=== PATIENT | female | born 1935 | race Caucasian/White ===

== ENCOUNTER 2016-07-11 19:25 | Inpatient (IN) ==
[2016-07-11 19:47] LABS: BLOOD TYPE ARTERIAL; DRAW SITE R FEMORAL; METHB 0.4 % (0.0-1.5); O2(CT) 16.6 mL/dL (15.0-23.0); PO2(98.6) 85 mmHg (60-100); SAMPLE BLOOD; SAO2 96.1 % (95.0-100.0); THB 12.4 g/dL (11.5-17.4)
[2016-07-11 19:49] LABS: MANUAL DIFF NEEDED? NO
[2016-07-11 19:50] LABS: ALLEN TEST NO; MODALITY AMBU BAG; PCO2(98.6) 67 mmHg (35-45)
[2016-07-11] MEDS ORDERED: NS 1,000 ML IV ONE ×3 (19:50→20:25)
[2016-07-11 19:55] LABS: POTASSIUM 3.8 mmol/L (3.5-5.1); SODIUM 133 mmol/L (136-145)
[2016-07-11 19:56] LABS: AGAP 14; BUN 15 mg/dL (8-22); CALCIUM 8.3 mg/dL (8.8-10.2); CHLORIDE 101 mmol/L (98-107); COSMO 271; TCO2 18 mmol/L (25-35)
[2016-07-11 19:57] LABS: ALBUMIN 2.8 g/dL (3.5-5.0); ALKALINE PHOSPHATASE 74 U/L (32-104); GOT 28 U/L (10-30); GPT 19 U/L (10-36); MAGNESIUM 2.1 mg/dL (1.5-2.7); TOTAL PROTEIN 5.5 g/dL (6.3-8.3)
[2016-07-11 19:58] LABS: CK PROFILE 62 U/L (24-173)
[2016-07-11 20:16] LABS: BASO% 0.3 % (0.0-0.8); EOS# 0.03 X1000 (0.0-0.7); EOS% 0.3 % (0.0-10.0); HEMATOCRIT 37.1 % (37.0-47.0); HEMOGLOBIN 12.1 g/dL (12.0-16.0); IMM GRAN# 0.22 X1000 (0.0-0.04); IMM GRAN% 2.1 % (0.0-0.5); LYMPH# 4.42 X1000 (1.2-3.4); LYMPH% 41.3 % (20.5-51.1); MCH 32.4 PG (27-31); MCHC 32.6 g/dL (33-37); MCV 99.2 FL (81-99); MONO# 0.38 X1000 (0.11-0.59); MONO% 3.6 % (1.7-9.3); MPV 8.9 FL (7.4-10.4); NEUT% 52.4 % (42.2-75.2); PLT 378 X1000 (130-400); RBC 3.74 XMIL (4.2-5.4)
[2016-07-11] MEDS ORDERED: ZOFRAN IV PRN (20:32)
[2016-07-11 20:55] LABS: BILIRUBIN URINE NEGATIVE (NEGATIVE); BLOOD URINE NEGATIVE (NEGATIVE); CLARITY CLEAR (CLEAR); COLOR YELLOW; GLUCOSE URINE NEGATIVE (NEGATIVE); LEUKOCYTES URINE TRACE (NEGATIVE); NITRITE URINE NEGATIVE (NEGATIVE); PROTEIN URINE NEGATIVE (NEGATIVE); SP GRAVITY URINE 1.015; URINE WBC <10 /HPF (<10); UROBILINOGEN URINE NORMAL
[2016-07-11 20:56] LABS: URINE CAST NONE SEEN /LPF; URINE CRYSTAL NONE SEEN /HPF; URINE CULTURE PL NEEDED? YES; URINE EPITHELIAL CELLS <10 /HPF (<10); URINE RBC <10 /HPF (<10); URINE SOURCE CATH
--- NOTE | 2016-07-11 21:11 | PROVIDER DOCUMENTATION ---
This chart was entered by Rowan Jackson Scribe, acting as scribe for Neo Frederick MD. HPI-Neurological Disorder - General Chief Complaint: Unresponsive Stated Complaint: NONRESPONSIVE Time Seen by Provider: 07/11/16 19:25 Source: EMS Unable to obtain history due to:: urgency (unresponsive) Allergies/Adverse Reactions: Patient Allergies Allergy/AdvReac Type Severity Reaction Status Date / Time latex Allergy RASH Verified 07/11/16 20:49 - History of Present Illness-Neuro Nature of Presenting Problem: Per EMS, daughter was giving pt a bath and pt went unresponsive and turned rose. Daughter started CPR with possible broken ribs. On EMS arrival, Fire Department was on scene and had pt on a NRB. PT was breathing 4-5 times a minute. EMS assisted pt with breathing en-route to ED. Severity: reports: severe Onset/Duration: reports: 1-3 hours ago Timing: reports: still present Character of Altered Mental Status: reports: unresponsive Cognitive Baseline: other (unresponsive) Similar Symptoms Previously?: No Recently seen or treated by another doctor?: No Review of Systems - Adult - REVIEW OF SYSTEMS - ADULT ROS:: unobtainable per condition Constitutional: reports: no symptoms reported Eyes: reports: no symptoms reported Ears, Nose, Mouth & Throat: reports: no symptoms reported Cardiovascular: reports: no symptoms reported Respiratory: reports: no symptoms reported Gastrointestinal: reports: no symptoms reported Genitourinary: reports: no symptoms reported Musculoskeletal: reports: no symptoms reported Integumentary: reports: no symptoms reported Neurological: reports: no symptoms reported Psychiatric: reports: no symptoms reported Endocrine: reports: no symptoms reported Hematologic/Lymphatic: reports: no symptoms reported Allergic/Immunologic: reports: no symptoms reported All Other Systems: Reviewed and Negative Past History - Adult - PAST MEDICAL HISTORY-ADULT Review of Records: reports: Nursing Assessment Review, Medications Reviewed Respiratory: reports: COPD Neurological: reports: dementia - IMMUNIZATION STATUS Childhood Immunizations: See Nurse Assessment Flu Vaccine: See Nurse Assessment Physical Exam- Neurological - Physical Exam-Neuro General Appearance: cachetic, other (unresponsive) Head Injury: no evidence of injury Respiratory: respiratory distress, rhonchi (diffuse) Cardiovascular: regular rate, rhythm Abdominal Exam: soft Psych/Mental Status: other (unresponsive) Progress - PLAN OF CARE/RESULTS Progress/Plan/Lab Results: Vital Signs - 8 hr 07/11/16 19:26 07/11/16 19:48 07/11/16 20:06 Temperature 93.9 F L Pulse Rate 92 H 80 Respiratory Rate 17 15 Blood Pressure 109/87 126/86 O2 Sat by Pulse Oximetry 96 96 100 07/11/16 20:18 07/11/16 20:27 Temperature 92.7 F L Pulse Rate 76 Respiratory Rate 16 Blood Pressure 114/76 O2 Sat by Pulse Oximetry 100 Laboratory Results - last 24 hr 07/11/16 07/11/16 07/11/16 19:10 19:15 19:15 WBC RBC Hgb Hct MCV MCH MCHC RDW Std Deviation Plt Count MPV Immature Gran % (Auto) Neut % (Auto) Lymph % (Auto) Bradley % (Auto) Eos % (Auto) Baso % (Auto) Immature Gran # (Auto) Neut # (Auto) Lymph # (Auto) Bradley # (Auto) Eos # (Auto) Baso # (Auto) Specimen Type ARTERIAL Sample Site R FEMORAL pH 7.20 L pCO2 67 H* pO2 85 HCO3 22.5 Base Excess -3.0 Oxyhemoglobin 94.5 L ABG O2 Sat (Calculated) 16.6 ABG O2 Saturation 96.1 ABG Carboxyhemoglobin 1.20 ABG Methemoglobin 0.4 Frandy Test NO A-a O2 Difference 544.0 Total Hemoglobin 12.4 Lactate 4.00 H Blood Gas Modality AMBU BAG FiO2 % 100.0 Sodium 133 L Potassium 3.8 Chloride 101 Carbon Dioxide 18 L Anion Gap 14 BUN 15 Creatinine 0.5 BUN/Creatinine Ratio 30 Glucose 171 H Calculated Osmolality 271 Calcium 8.3 L Magnesium 2.1 Total Bilirubin 0.30 AST 28 ALT 19 Alkaline Phosphatase 74 Creatine Kinase 62 Troponin T 0.011 Qhz-[id number]-Mthbweylmob Pept Total Protein 5.5 L Albumin 2.8 L Globulin 3.0 Albumin/Globulin Ratio 1.0 Urine Source Urine Color Urine Clarity Urine pH Ur Specific [place] Urine Protein Urine Ketones Urine Blood Urine Nitrite Urine Bilirubin Urine Urobilinogen Urine Microscopic RBC Urine WBC Urine Microscopic WBC Ur Epithelial Cells Urine Crystals Urine Bacteria Urine Casts Urine Yeast Urine Glucose 07/11/16 07/11/16 07/11/16 19:15 19:15 19:20 WBC 10.69 RBC 3.74 L Hgb 12.1 Hct 37.1 MCV 99.2 H MCH 32.4 H MCHC 32.6 L RDW Std Deviation 13.5 Plt Count 378 MPV 8.9 Immature Gran % (Auto) 2.1 H Neut % (Auto) 52.4 Lymph % (Auto) 41.3 Bradley % (Auto) 3.6 Eos % (Auto) 0.3 Baso % (Auto) 0.3 Immature Gran # (Auto) 0.22 H Neut # (Auto) 5.61 Lymph # (Auto) 4.42 H Bradley # (Auto) 0.38 Eos # (Auto) 0.03 Baso # (Auto) 0.03 Specimen Type Sample Site pH pCO2 pO2 HCO3 Base Excess Oxyhemoglobin ABG O2 Sat (Calculated) ABG O2 Saturation ABG Carboxyhemoglobin ABG Methemoglobin Frandy Test A-a O2 Difference Total Hemoglobin Lactate Blood Gas Modality FiO2 % Sodium Potassium Chloride Carbon Dioxide Anion Gap BUN Creatinine BUN/Creatinine Ratio Glucose Calculated Osmolality Calcium Magnesium Total Bilirubin AST ALT Alkaline Phosphatase Creatine Kinase Troponin T Dyd-X-Hwjggrxpvus Pept 362 Total Protein Albumin Globulin Albumin/Globulin Ratio Urine Source CATH Urine Color YELLOW Urine Clarity CLEAR Urine pH 7.0 Ur Specific [place] 1.015 Urine Protein NEGATIVE Urine Ketones NEGATIVE Urine Blood NEGATIVE Urine Nitrite NEGATIVE Urine Bilirubin NEGATIVE Urine Urobilinogen NORMAL Urine Microscopic RBC <10 Urine WBC TRACE A Urine Microscopic WBC <10 Ur Epithelial Cells <10 Urine Crystals NONE SEEN Urine Bacteria NEGATIVE Urine Casts NONE SEEN Urine Yeast NONE SEEN Urine Glucose NEGATIVE Orders Category Date Time Status Admit - [facility] Routine AdmDCTranf 07/11/16 20:25 Ordered Activity - Strict Bedrest ORDERED Care 07/11/16 20:25 Active Activity - Up with Assistance ORDERED Care 07/11/16 20:30 Active Cardiac Monitoring DIRECTED Care 07/11/16 19:37 Active FSBS [Finger Stick Blood Sugar (ED)] DIRECTED Care 07/11/16 19:37 Active FSBS/Accucheck Result AC + HS Care 07/11/16 20:30 Active Luis Cath Insertion ORDERED Care 07/11/16 19:37 Active IV Insertion ORDERED Care 07/11/16 19:37 Completed Intake and Output-Strict ORDERED Care 07/11/16 20:30 Active Neurological Check Q1h Care 07/11/16 20:25 Active Nursing- Assist w/ IS as order ORDERED Care 07/11/16 20:30 Active Saline Loc DIRECTED Care 07/11/16 20:30 Active Turn, Cough and Deep Breathe Q4HR.AWAKE Care 07/11/16 20:30 Active Vital Signs Order Q 4-HR ASSESS Care 07/11/16 20:25 Active NPO Diet 07/11/16 20:28 Active CHEST-1 VIEW [RAD] Stat Exams 07/11/16 19:37 Taken ABG [RESP] Routine Lab 07/11/16 19:10 Completed BLOOD CULTURE [BLDCUL] Routine Lab 07/12/16 06:00 Ordered CBC WITH DIFF [HEME] Stat Lab 07/11/16 19:15 Completed CBC WITH NO DIFF [HEME] Routine Lab 07/12/16 06:00 Ordered CK PROFILE [SP CHEM] Stat Lab 07/11/16 19:15 Completed COMPREHENSIVE METABOLIC PANEL [CHEM] Routine Lab 07/12/16 06:00 Ordered COMPREHENSIVE METABOLIC PANEL [CHEM] Stat Lab 07/11/16 19:15 Completed MAGNESIUM [CHEM] Stat Lab 07/11/16 19:15 Completed PRO B-NATRIURETIC PEPTIDE Stat Lab 07/11/16 19:15 Completed SPUTUM CULTURE WITH GRAM STAIN [RM] Routine Lab 07/11/16 20:31 Uncollected TROPONIN T Stat Lab 07/11/16 19:[address] W/POSS RFLX CULT [URINALYSIS] Stat Lab 07/11/16 19:20 Completed 0.9% Sodium Chloride Inj [Ns] 1,000 ml Med 07/11/16 20:25 Active IV 100 mls/hr 0.9% Sodium Chloride Inj [Ns] 1,000 ml Med 07/11/16 19:50 Discontinued IV 999 mls/hr 0.9% Sodium Chloride Inj [Ns] 1,000 ml Med 07/11/16 20:24 Active IV 999 mls/hr Albuterol 2.5MG/Ipratrop 0.5MG [Duoneb (A & A)] Med 07/11/16 20:32 Active 3 ml INH Q2-4H PRN PRN CefTRIAXONE 2 GM/NS [Rocephin 2 gm/Ns] Med 07/11/16 20:30 Active 2 gm in 50 ml IV Q24H Doxycycline 100 mg Med 07/11/16 20:30 Active 0.9% Sodium Chloride Inj [Ns] 250 ml IV Q12H Enoxaparin [Lovenox] Med 07/11/16 20:30 Active 30 mg SUBQ Q24H Methylprednisolone Sod Succ [Solu-Medrol] Med 07/11/16 20:30 Active 40 mg IV Q8H Ondansetron [Zofran] Med 07/11/16 20:32 Active 4 mg IV Q4H PRN PRN Pantoprazole [Protonix] Med 07/11/16 20:45 Active 40 mg IV Q12H Sodium Chloride 0.9% Med 07/11/16 20:45 Active 10 ml INJ DIRECTED Aerosol Treatments Routine Ot 07/11/16 20:30 Active Aerosol Treatments Routine Ot 07/11/16 20:33 Active Aerosol Treatments Stat Ot 07/11/16 20:33 Active BIPAP Stat Ot 07/11/16 19:37 Active Incentive Spirometer Q4HR.AWAKE Ot 07/11/16 21:00 Ordered Incentive Spirometer Q4HR.AWAKE Ot 07/12/16 01:00 Ordered Incentive Spirometer Q4HR.AWAKE Ot 07/12/16 05:00 Ordered Incentive Spirometer Q4HR.AWAKE Ot 07/12/16 09:00 Ordered Incentive Spirometer Q4HR.AWAKE Ot 07/12/16 13:00 Ordered Incentive Spirometer Q4HR.AWAKE Ot 07/12/16 17:00 Ordered Oxygen Device Routine Ot 07/11/16 20:30 Active Peak Flow BID Ot 07/11/16 21:00 Ordered Peak Flow BID Ot 07/12/16 09:00 Ordered Pulse Oximetry Stat Ot 07/11/16 19:37 Active Telemetry [OM.EQ] Routine Oth 07/11/16 20:25 Active EKG [EKG] Stat Ther 07/11/16 19:37 Ordered Transfer/Admit Order [TRANSFER] Routine Transfer 07/11/16 20:33 Ordered Result Diagrams: 07/11/16 19:15 07/11/16 19:15 - EKG 1 Time of EKG reading by physician:: 19:37 EKG Read and Signed by:: Neo Frederick EKG Interpretation (*Must complete 3 of following elements*): Abnormal Rate: 87 Rhythm: sinus rhythm with premature supraventricular complexes and w/ occ PVCs [place]: left 2 Time of EKG reading by physician:: 19:41 EKG Read and Signed by:: Neo Frederick EKG Interpretation (*Must complete 3 of following elements*): Abnormal Rate: 82 Rhythm: sinus rhythm with occasional PVCs [place]: left ST Wave: non-specific ST changes (T-wave abnormality) - XRAY 1 XRAY Study: Chest XRAY Interpretation: hyperinflation, old humeral fxs: Dr. Frederick(ER MD) - CONSULTS/PCP/HOSPITALIST Notification #1 *Consult/PCP/Hospitalist*: Dr. Catalan(hospitalist) Time Discussed: 20:00 Consult Disposition: Will see in ED, Admit Departure - Departure Time of Disposition Decision: 21:10 DIAGNOSIS: Unresponsive COPD (chronic obstructive pulmonary disease) Qualifiers: COPD type: emphysema Emphysema type: unspecified Qualified Code(s): J43.9 - Emphysema, unspecified Disposition: ADMITTED INPATIENT 09 Certified Medical Emergency: Emergent Condition: Critical - Critical Care Note This patient required my direct & personal management of CC.: Yes Total Time (mins): 45 Critical Care Statement: This patient required my direct personal management to treat or rule out processes, the absence of which, could potentiallly result in sudden, clinically significant life or limb threatening deterioration. This chart was documented by the indicated scribe, (Rowan Jackson Scribe) and accurately reflects the services I performed and decisions made by me, Neo Frederick MD, as attested by the provider's signature.
[2016-07-11] MEDS ORDERED: LEVOPHED 8 MG in D5 1/2 NS 250 ML IV SCH (21:30)
[2016-07-11] MEDS ORDERED: LEVOPHED ONE (21:34)
[2016-07-11] MEDS ORDERED: D5 1/2 NS 250 ML IV SCH (22:00)
--- NOTE | 2016-07-11 22:04 | EKG Report ---
Test Performed on : 07/11/2016 7:37:21 PM Test Reason : respiratory failure Blood Pressure : / mmHG Vent. Rate : 087 BPM Atrial Rate : 087 BPM P-R Int : 160 ms QRS Dur : 078 ms QT Int : 386 ms P-R-T Axes : 082 -86 -18 degrees QTc Int : 464 ms Sinus rhythm. with premature supraventricular complexes. and with occasional premature ventricular c omplexes. Left axis deviation Low voltage QRS Cannot rule out Anteroseptal infarct , age undetermined Abnormal ECG No previous ECGs available Unconfirmed Result
[2016-07-11] MEDS: PROTONIX IV SCH (22:14)
[2016-07-11] MEDS: LOVENOX SUBQ SCH (22:14)
[2016-07-11] MEDS: SOLU-MEDROL IV SCH (22:14)
[2016-07-11] MEDS ORDERED: NS 1,000 ML ONE (22:18)
[2016-07-11] MEDS ORDERED: ROCEPHIN 1 GM/NS 1 GM/50 ML IVPB IV ONE ×2 (23:00→23:30)
[2016-07-11] MEDS ORDERED: ROCEPHIN ONE (23:24)
[2016-07-11] MEDS ORDERED: [UNRECOGNIZED DRUG - OTHER] ONE (23:24)
[2016-07-12] MEDS ORDERED: DOPAMINE 800 MG/D5W (PARKWAY ONLY!) 800 MG/250 ML IV.SOLN IV SCH (00:30)
[2016-07-12] MEDS: DOXYCYCLINE 100 MG in NS 250 ML IV SCH ×3 (01:00→22:27)
[2016-07-12] MEDS: LEVOPHED 8 MG in D5 1/2 NS 250 ML IV SCH ×2 (02:30→07:59)
[2016-07-12] MEDS: SOLU-MEDROL IV SCH ×3 (04:13→20:19)
[2016-07-12] MEDS: DUONEB (A & A) INH PRN ×2 (04:17→08:06)
[2016-07-12 06:30] LABS: HEMATOCRIT 39.8 % (37.0-47.0); HEMOGLOBIN 13.1 g/dL (12.0-16.0); MCH 32.3 PG (27-31); MCHC 32.9 g/dL (33-37); MPV 8.7 FL (7.4-10.4); RBC 4.06 XMIL (4.2-5.4)
[2016-07-12 06:43] LABS: AGAP 15; ALBUMIN 2.6 g/dL (3.5-5.0); ALKALINE PHOSPHATASE 63 U/L (32-104); BUN 20 mg/dL (8-22); CHLORIDE 106 mmol/L (98-107); COSMO 287; GOT 29 U/L (10-30); GPT 22 U/L (10-36); POTASSIUM 3.6 mmol/L (3.5-5.1); SODIUM 141 mmol/L (136-145); TCO2 20 mmol/L (25-35); TOTAL PROTEIN 5.3 g/dL (6.3-8.3)
--- NOTE | 2016-07-12 07:48 | Diag Imaging Result Document ---
PROCEDURE NAME: CHEST-1 VIEW - 07/11/2016 PORTABLE AP CHEST: COMPARISON: No comparison films. FINDINGS: The lungs are hyperexpanded. The heart is not enlarged. The pulmonary vessels are small. No pneumonia. No pleural effusions identified. Longstanding arthritic changes to the shoulders. IMPRESSION: Emphysema.
[2016-07-12] MEDS ORDERED: NS 1,000 ML ONE ×2 (09:22→12:58)
[2016-07-12] MEDS: PROTONIX IV SCH ×2 (09:45→20:19)
[2016-07-12] MEDS: SODIUM CHLORIDE 0.9% INJ SCH (10:28)
--- NOTE | 2016-07-12 11:38 | HISTORY AND PHYSICAL ---
PRIMARY CARE PHYSICIAN: Dr. Thompson. CHIEF COMPLAINT: Unresponsive. HISTORY OF PRESENTING ILLNESS: This is an 80-year-old female, who arrived to [facility] ER via EMS after they were called when the daughter was giving the patient a bath and the patient went unresponsive, turning rose. The daughter states that she began CPR. On arrival, CPR was in place, a non-rebreather mask was placed and patient was breathing 4-5 times a minute. Upon arrival to the ER per ER records, the patient per EMS had an O2 saturation in the 80s and was able to bring it up to the high 90s. Her rectal temp on arrival was noted to be 93.9. She was placed on a bear warmer. A bolus of normal saline was given. Approximately 10 minutes after arrival, the patient began responding to some verbal stimuli. BiPAP was placed. Code status was discussed with the family in the ER. They wanted some time to discuss their options, and the daughter wanted to wait on her son before code status decision was made. The patient was admitted to the intensive care unit for further evaluation and treatment. PAST MEDICAL HISTORY: COPD and dementia. PAST SURGICAL HISTORY: Cholecystectomy. FAMILY HISTORY: Noncontributory. SOCIAL HISTORY: She is currently living with her daughter. Denies any tobacco, alcohol, or illicit drug use. Please note all information has been obtained from the medical record. No family at bedside at this time. ALLERGIES: Latex. HOME MEDICATIONS: Will all be held at this time, but she takes aspirin 81 mg p.o. daily, BuSpar 15 mg p.o. b.i.d., Aricept 10 mg p.o. b.i.d., Lexapro 20 mg p.o. daily, and Prinivil 10 mg p.o. daily. LABORATORY DATA: Showed a white blood cell count of 10.69, hemoglobin of 12.1, hematocrit 37.1, platelets 378. ABG with a pH of 7.20 pCO2 67, PO2 85, bicarbonate 22.5. Sodium of 133, potassium 3.8, chloride 101, CO2 18, BUN of 15, creatinine 0.5, glucose 171. Urinalysis was negative. DIAGNOSTIC DATA: The chest x-ray showed emphysema. EKG showed sinus rhythm with premature supraventricular complexes and with occasional PVCs at 87. REVIEW OF SYSTEMS: Unable to obtain. PHYSICAL EXAMINATION: VITAL SIGNS: On arrival showed a temperature of 93.9 degrees, pulse 92, respirations 17, blood pressure 109/87, and again this was on 96% O2 saturation with Ambu bag. She was then placed on BiPAP approximately 15 minutes later and was saturating 96-100% and a bear warmer was placed this a.m. HEENT: Normocephalic. Atraumatic. Pupils appear equal, round, and reactive to light. Extraocular movements unable to assess at this time. NECK: Supple. LUNGS: With rhonchi and in respiratory distress. HEART: Regular rate and rhythm. No murmurs, rubs, gallops. ABDOMEN: Soft, nontender, nondistended. Bowel sounds are present x4 quadrants. EXTREMITIES: No clubbing, cyanosis, or edema. NEUROLOGICAL: Unable to obtain as patient is unresponsive at this time. ASSESSMENT: 1. Unresponsive. 2. Acute respiratory failure. 3. Hypothermia. 4. Hypotension. PLAN: She was admitted to the medical unit at [place]. Placed on BiPAP, telemetry. She is n.p.o. at this time. We are obtaining a urine culture, sputum culture, blood cultures x2. Will place on doxycycline 100 mg IV q. 24 hours, Lovenox 30 mg subcutaneous q. 24 hours, Solu-Medrol 40 mg IV q. 8 hours, Protonix 40 mg IV q. 12 hours, Rocephin 2 g IV q. 24 hours and recheck labs in the a.m. We will continue to discuss code status with the patient's family to obtain a definitive code status for this patient. Dictated by AUSTIN Reid for Sam Catalan MD cc: AUSTIN Reid MD Charles D Coffey, MD
[2016-07-12] MEDS: NS 1,000 ML IV SCH (13:44)
[2016-07-12] MEDS: LEVOPHED 16 MG in D5 1/2 NS 500 ML IV SCH (13:45)
[2016-07-12] MEDS: LOVENOX SUBQ SCH (20:19)
[2016-07-12] MEDS: ROCEPHIN 2 GM/NS 2 GM/50 ML IVPB IV SCH (22:29)
[2016-07-13] MEDS: SOLU-MEDROL IV SCH (04:20)
[2016-07-13] MEDS: LEVOPHED 16 MG in D5 1/2 NS 500 ML IV SCH (04:20)
[2016-07-13] MEDS: DUONEB (A & A) INH PRN ×2 (07:50→11:00)
[2016-07-13] MEDS ORDERED: LEVOPHED 8 MG in D5 1/2 NS 250 ML IV SCH (08:15)
--- NOTE | 2016-07-13 09:15 | PROGRESS NOTE ---
DATE: 07/13/2016 SUBJECTIVE: This patient looks better today. She is more awake. She is more alert. She is following commands. We stopped the pressors on this patient and her blood pressure has been stable but the urine output has been low. Pending lab work results today. OBJECTIVE: Vital Signs: Temperature 98.4 degrees, pulse 86, respiratory rate 17, blood pressure 107/73. Oxygen saturation 100% on BiPAP 60% oxygen flow. HEENT: Head normocephalic. No trauma. PERRLA. Neck: Supple. No JVD. No masses. Central trachea. Chest: Coarse breath sounds bilaterally. Decreased breath sounds at the bases. Cardiovascular: RRR. Abdomen: Mild tenderness to palpation at the level of suprapubic area. Extremities: No edema. No clubbing. No cyanosis. Neurological Examination: The patient is alert. She is following commands but she is not answering my questions. She is on a BiPAP machine now but compared with yesterday, she looks better. Laboratory: Pending lab work today, CBC, CMP, and ABGs. ASSESSMENT AND PLAN: 1. Unresponsive. She is much better. She is alert and she is following commands. Apparently at home, she became unresponsive and they started doing cardiopulmonary resuscitation. Then she regained consciousness. Then she was transferred to the intensive care unit. At this moment, she is doing much better. I will continue to monitor troponins. Last troponin was 0.08. I do not think this patient had a heart attack. 2. Acute respiratory failure. This patient is still on the BiPAP machine. She is tolerating this much better. We will continue to monitor. 3. Hypothermia on admission, resolved. The temperature today is 98.4. 4. Hypotension. This patient has been on pressors, dopamine and Levophed, but at this moment, the blood pressure is much better. We will continue to monitor. She is off pressors at this moment. 5. History of chronic obstructive pulmonary disease, not in exacerbation at this moment. We have a chest x-ray on admission that showed emphysema but no acute pathology. I will order a new chest x-ray today. 6. Dementia. Aware. Continue to monitor. CRITICAL CARE TIME: 40 minutes. cc: Jose Elias Rivas MD
--- NOTE | 2016-07-13 09:35 | Diag Imaging Result Document ---
PROCEDURE NAME: CHEST-PORTABLE - 07/13/2016 SINGLE FRONTAL RADIOGRAPH OF THE CHEST: COMPARISON: 07/11/2016. FINDINGS: There is, perhaps, slight increased opacification in the right perihilar region. This may be due to differences in positioning, however. I suppose a right perihilar infiltrate is possible. The lungs are clear otherwise. There is no definite pleural fluid collection. Cardiac silhouette is unremarkable. IMPRESSION: Slight increase in opacity in the right perihilar region as detailed above.
[2016-07-13 09:43] LABS: CALCIUM 8.2 mg/dL (8.8-10.2); POTASSIUM 4.3 mmol/L (3.5-5.1)
[2016-07-13 09:45] LABS: BE -1.7 mmoll (-3.0-3.0); BLOOD TYPE ARTERIAL; DRAW SITE R RADIAL; METHB 0.7 % (0.0-1.5); O2(CT) 18.7 mL/dL (15.0-23.0); PCO2(98.6) 32 mmHg (35-45); SAMPLE BLOOD; SAO2 98.4 % (95.0-100.0); THB 13.1 g/dL (11.5-17.4); pH(98.6) 7.44 (7.35-7.45)
[2016-07-13 09:50] LABS: MODALITY NRB
[2016-07-13 09:51] LABS: ALLEN TEST YES
[2016-07-13 09:52] LABS: PO2(98.6) 312 mmHg (60-100)
[2016-07-13] MEDS: SODIUM CHLORIDE 0.9% INJ SCH (09:54)
[2016-07-13] MEDS: PROTONIX IV SCH ×2 (09:54→20:56)
[2016-07-13] MEDS: CLINIMIX E 4.25%-5% SOLUTION 1,000 ML IV SCH (09:55)
[2016-07-13] MEDS: NS 1,000 ML IV SCH (09:55)
[2016-07-13 10:03] LABS: BASO% 0.1 % (0.0-0.8); HEMATOCRIT 32.6 % (37.0-47.0); IMM GRAN# 0.21 X1000 (0.0-0.04); IMM GRAN% 1.5 % (0.0-0.5); LYMPH# 1.14 X1000 (1.2-3.4); LYMPH% 7.9 % (20.5-51.1); MANUAL DIFF NEEDED? YES; MCH 32.5 PG (27-31); MCHC 33.7 g/dL (33-37); MCV 96.4 FL (81-99); MONO# 0.53 X1000 (0.11-0.59); MONO% 3.7 % (1.7-9.3); MPV 9.5 FL (7.4-10.4); NEUT% 86.8 % (42.2-75.2); PLT 223 X1000 (130-400); RBC 3.38 XMIL (4.2-5.4)
[2016-07-13 10:41] LABS: BANDS 3 % (0-1); LYMPHS 9 % (21-51); MONO 8 % (1-9)
[2016-07-13] MEDS: DOXYCYCLINE 100 MG in NS 250 ML IV SCH ×2 (11:05→22:02)
[2016-07-13] MEDS: LOVENOX SUBQ SCH (20:56)
[2016-07-13] MEDS: ROCEPHIN 2 GM/NS 2 GM/50 ML IVPB IV SCH (23:00)
[2016-07-14] MEDS: DUONEB (A & A) INH PRN ×7 (03:45→22:40)
[2016-07-14] MEDS: NS 1,000 ML IV SCH (05:18)
[2016-07-14] MEDS: SOLU-MEDROL IV SCH (05:18)
[2016-07-14 06:51] LABS: HEMATOCRIT 31.1 % (37.0-47.0); HEMOGLOBIN 10.5 g/dL (12.0-16.0); IMM GRAN% 0.7 % (0.0-0.5); LYMPH% 8.8 % (20.5-51.1); MANUAL DIFF NEEDED? YES; MCH 32.9 PG (27-31); MCHC 33.8 g/dL (33-37); MCV 97.5 FL (81-99); MONO% 3.7 % (1.7-9.3); MPV 10.4 FL (7.4-10.4); NEUT% 86.8 % (42.2-75.2); PLT 207 X1000 (130-400); RBC 3.19 XMIL (4.2-5.4)
[2016-07-14 07:22] LABS: AGAP 18; BUN 36 mg/dL (8-22); CHLORIDE 107 mmol/L (98-107); COSMO 284; POTASSIUM 3.9 mmol/L (3.5-5.1); SODIUM 139 mmol/L (136-145); TCO2 14 mmol/L (25-35)
[2016-07-14 07:26] LABS: BANDS 4 % (0-1); LYMPHS 18 % (21-51); MONO 4 % (1-9)
[2016-07-14] MEDS ORDERED: D50W SYRINGE IV ONE (08:12)
[2016-07-14] MEDS ORDERED: D50W SYRINGE ONE (08:16)
[2016-07-14] MEDS: SODIUM CHLORIDE 0.9% INJ SCH (08:17)
[2016-07-14] MEDS: PROTONIX IV SCH ×2 (08:17→20:40)
[2016-07-14] MEDS: CLINIMIX E 4.25%-5% SOLUTION 1,000 ML IV SCH (08:18)
--- NOTE | 2016-07-14 10:08 | PROGRESS NOTE ---
DATE: 07/14/2016 SUBJECTIVE: This patient looks better today. She is more awake. She is alert and answering most of my questions. She knows that she is in the hospital and she knows her name. She is not oriented in time. The urine output is still low. The creatinine is stable and the BUN is a little bit high. OBJECTIVE: Vital Signs: Temperature 96.6 degrees, pulse 79, respiratory rate 11, blood pressure 143/79, oxygen saturation 92 on 3 L of nasal cannula. HEENT: Head normocephalic. No trauma. PERRLA. Neck: Supple. No JVD. No masses. Central trachea. Chest: Coarse breath sounds bilaterally. Decreased breath sounds at the bases and rhonchi at the level of the right middle lung. Cardiovascular: RRR. Abdomen: Mild tenderness to palpation at the level of the suprapubic area. Extremities: No edema. No clubbing. No cyanosis. Neurological: This patient is alert. She is following commands. She is answering most of my questions. She is on nasal cannula at this moment. LABORATORY: Sodium 139, potassium 2.9, chloride 107, bicarbonate 14, BUN 36, creatinine 0.8, glucose 66, calcium 9. ASSESSMENT AND PLAN: 1. Unresponsive. This patient was unresponsive at home and as per the family member they did CPR on this patient. Am not quite sure if this patient had a cardiac arrest. At this moment she is doing better. 2. Acute respiratory failure. This patient is much better. She is tolerating nasal cannula. She is not having work of breathing. This patient has a pneumonia and this is likely secondary to this. 3. Right perihilar pneumonia. Continue with antibiotics. I do believe that this is getting better. 4. Hypothermia on admission. Resolved. 5. Hypertension. This patient has been off pressors for more than 12 hours. The blood pressure has been stable. We will continue to monitor. 6. History of chronic obstructive pulmonary disease. Not in exacerbation at this moment. 7. Dementia. Aware. Continue to monitor. cc: Jose Elias Rivas MD
[2016-07-14] MEDS: DOXYCYCLINE 100 MG in NS 250 ML IV SCH ×2 (10:25→22:55)
[2016-07-14] MEDS: LOVENOX SUBQ SCH (20:40)
[2016-07-14] MEDS: ROCEPHIN 2 GM/NS 2 GM/50 ML IVPB IV SCH (22:55)
[2016-07-15] MEDS: NS 1,000 ML IV SCH ×2 (01:44→22:10)
[2016-07-15] MEDS: DUONEB (A & A) INH PRN ×3 (03:15→18:35)
[2016-07-15] MEDS: SOLU-MEDROL IV SCH (05:54)
[2016-07-15 07:08] LABS: HEMATOCRIT 29.1 % (37.0-47.0); HEMOGLOBIN 9.5 g/dL (12.0-16.0); IMM GRAN# 0.04 X1000 (0.0-0.04); IMM GRAN% 0.4 % (0.0-0.5); LYMPH# 0.76 X1000 (1.2-3.4); LYMPH% 7.4 % (20.5-51.1); MANUAL DIFF NEEDED? YES; MCH 31.4 PG (27-31); MCHC 32.6 g/dL (33-37); MONO# 0.24 X1000 (0.11-0.59); MONO% 2.3 % (1.7-9.3); MPV 9.7 FL (7.4-10.4); NEUT% 89.9 % (42.2-75.2); PLT 245 X1000 (130-400); RBC 3.03 XMIL (4.2-5.4)
[2016-07-15 07:47] LABS: CALCIUM 8.5 mg/dL (8.8-10.2); POTASSIUM 3.8 mmol/L (3.5-5.1)
[2016-07-15 08:53] LABS: HYPOCHROM OCCASIONAL; LYMPHS 4 % (21-51); MONO 1 % (1-9)
[2016-07-15] MEDS: PROTONIX IV SCH ×2 (09:46→19:58)
[2016-07-15 12:08] LABS: TIBC 149 ug/dL; TOTAL IRON 34 ug/dL (49-151)
[2016-07-15 12:10] LABS: IRON SATURATION 23 %
--- NOTE | 2016-07-15 12:49 | PROGRESS NOTE ---
DATE: 07/15/2016 SUBJECTIVE: Today, Ms. Peralta refers to be doing a whole lot better. She is more alert and more conversational. According to the daughter, who is the caregiver, her mother is feeling much better. According to her, the mother was coughing after having her dinner and then went to take a shower. Then, during the shower, she blacked out. She tried to pull her out of the shower and put her on the side, and administered a few rounds of CPR. When she turned her to her side, she kind of coughed up some sputum and after that she felt a whole lot better. OBJECTIVE: Vital Signs: Today, blood pressure is 116/76, pulse of 73, respirations 12, temperature 97.8 degrees, and patient is saturating 96% on 3L of nasal cannula. General: Ms. Peralta is an 80-year-old, very brittle female. She is in bed. She did not seem to be in any distress. HEENT: Mucosa slightly dry. Anicteric. Acyanotic. Neck: Supple. Chest: Good air entry bilaterally. Few bibasilar crepitations. Cardiovascular: Regular rate and rhythm. Abdomen: Soft. Extremities: Trace of pedal edema. Central Nervous System: Patient is alert, oriented. Musculoskeletal: There are some bruises over the upper extremities consistent with skin fragility. LABORATORY DATA: WBC 10.30, hemoglobin 9.5, platelet count of 247,000. There are no bands on peripheral smear. Chemistry is reviewed. Sodium is 141, potassium is 3.8, chloride is 110, bicarbonate is 22, creatinine 0.9, calcium is 8.5, and prealbumin is 15.7. ASSESSMENT: 1. Syncope at home, likely due to aspiration. 2. Right perihilar pneumonia, likely due to aspiration pneumonia. 3. Hypercarbic respiratory distress on presentation. 4. History of chronic obstructive pulmonary disease. The patient was not a first-hand smoker, but lived with people who used to smoke a lot. I think he is a secondhand smoker with some chronic obstructive pulmonary disease changes. 5. General physical deconditioning. 6. Protein calorie malnutrition. I think, in general, Ms. Peralta is pretty much a very frail female, but she is stable. We will going to take out the Luis catheter, transfer her from the ICU to a regular floor, get her up in chair, and continue with her diet. Hopefully, by tomorrow, if she continues to show remarkable improvement, we will be able to discharge her. We are going to continue with the current antibiotics and restart her on multivitamins. I will do a TSH and iron panel to make sure she is not severely iron deficient or vitamin D deficient and needs to be replaced at higher dose. cc: Padilla Arnold MD
[2016-07-15] MEDS: THERA M PLUS PO SCH (13:06)
[2016-07-15] MEDS: DOXYCYCLINE 100 MG in NS 250 ML IV SCH ×2 (19:27→22:07)
[2016-07-15] MEDS: LOVENOX SUBQ SCH (19:58)
[2016-07-16] MEDS: ROCEPHIN 2 GM/NS 2 GM/50 ML IVPB IV SCH (00:10)
[2016-07-16] MEDS: DUONEB (A & A) INH PRN ×2 (08:17→12:07)
[2016-07-16] MEDS: VITAMIN D PO SCH (09:36)
[2016-07-16] MEDS: PROTONIX IV SCH ×2 (09:37→22:42)
[2016-07-16] MEDS: THERA M PLUS PO SCH (09:37)
[2016-07-16] MEDS: FOLIC ACID PO SCH (09:37)
[2016-07-16] MEDS: SOLU-MEDROL IV SCH (11:23)
[2016-07-16] MEDS: DOXYCYCLINE 100 MG in NS 250 ML IV SCH ×2 (11:41→22:43)
--- NOTE | 2016-07-16 12:29 | PROGRESS NOTE ---
DATE: 07/16/2016 SUBJECTIVE: Today, Ms. Peralta refers to be doing slightly well. She denies any major complaints. According to the daughter at the bedside, the patient's respiratory status has slightly worsened. OBJECTIVE: Vital Signs: Blood pressure is 160/92, pulse of 97, respirations 18 , temperature 98.2 degrees. General: Ms. Peralat is an 80-year-old female. She is in bed, not seemingly distressed. HEENT: Mucosa is pink and moist. Anicteric. Acyanotic. Neck is supple. Chest: Air entry is bilaterally reduced. A few bibasilar crepitations. Cardiovascular: Regular rate and rhythm. Abdomen is soft. Extremities: About 2+ pedal edema, and it is slightly cold bilateral. RESIDENCE SUPERVISOR: Patient is alert. Moves 4 extremities and knows where she is and her name. Musculoskeletal: The patient has bruises all over consistent with skin fragility. ASSESSMENT: 1. Syncope at home likely due to aspiration. 2. Right perihilar pneumonia due to aspiration pneumonia. 3. Hypercarbic respiratory failure on presentation due to #2. 4. History of chronic obstructive pulmonary disease, currently not in exacerbation. 5. General physical deconditioning. 6. Severe protein calorie malnutrition. 7. Multivitamin and mineral deficiencies (folate and vitamin D deficiency) likely nutritional. 8. Anasarca likely due to severe hypoproteinemia. 9. Anemia of chronic disease with elevated ferritin. 10. Subclinical hypothyroidism. The patient will need to repeat her labs when she is at a steady state. In general today, Ms. Peralta seems to be stable. The daughter is concerned about her in that her respiratory status seems to be a little worse than yesterday, and she is also concerned about the fluid. PLAN: We are going to give 3 doses of albumin over the course of the 3 days with Lasix to improve some of the fluids. We will replace her vitamins and mineral deficiencies. We will still pending swallow evaluation. I encouraged the patient to seated up in the chair. Her overall prognosis is poor taking into consideration her age and the fact that she does have underlying dementia. We will try and optimize her nutritional status but I did discuss with the daughter that probably the bottom line will be to look at options of hospice, since I do not think she is going to remarkably improve in terms of her nutritional status. We will repeat her chest x-ray tomorrow morning. Her EKG does show very poor R-wave progression and also very low-voltage. She has poor perfusion, so I am wondering if she has very poor EF that needs to be addressed. We will do an echo to follow up on that. cc: Padilla Arnold MD MTDD
[2016-07-16] MEDS: LASIX IV SCH (12:44)
[2016-07-16] MEDS: LOVENOX SUBQ SCH (22:43)
[2016-07-17] MEDS: ROCEPHIN 2 GM/NS 2 GM/50 ML IVPB IV SCH ×2 (00:53→22:35)
[2016-07-17] MEDS: SOLU-MEDROL IV SCH (05:47)
[2016-07-17 07:04] LABS: MANUAL DIFF NEEDED? NO
[2016-07-17 07:05] LABS: EOS# 0.01 X1000 (0.0-0.7); EOS% 0.1 % (0.0-10.0); HEMATOCRIT 30.5 % (37.0-47.0); IMM GRAN# 0.03 X1000 (0.0-0.04); IMM GRAN% 0.4 % (0.0-0.5); LYMPH# 0.84 X1000 (1.2-3.4); LYMPH% 12.2 % (20.5-51.1); MCH 31.8 PG (27-31); MCHC 32.8 g/dL (33-37); MCV 97.1 FL (81-99); MONO# 0.34 X1000 (0.11-0.59); MONO% 4.9 % (1.7-9.3); MPV 9.2 FL (7.4-10.4); NEUT% 82.4 % (42.2-75.2); PLT 238 X1000 (130-400); RBC 3.14 XMIL (4.2-5.4)
[2016-07-17 07:26] LABS: AGAP 13; BUN 38 mg/dL (8-22); CALCIUM 8.3 mg/dL (8.8-10.2); CHLORIDE 109 mmol/L (98-107); COSMO 291; POTASSIUM 3.8 mmol/L (3.5-5.1); SODIUM 142 mmol/L (136-145); TCO2 20 mmol/L (25-35)
--- NOTE | 2016-07-17 08:11 | Diag Imaging Result Document ---
PROCEDURE NAME: CHEST-PORTABLE - 07/17/2016 PORTABLE CHEST: Compared with 07/13/2016. FINDINGS: Heart size is within normal limits. There has been development of infiltrate at the right base. There is mild prominence of left perihilar markings. There is infiltrate or atelectasis at the medial left base. There are small bilateral pleural effusions. There is no pneumothorax seen. There are degenerative changes noted at the bilateral shoulders. IMPRESSION: Development of bilateral infiltrates and small bilateral pleural effusions. These may relate to pneumonia and/or pulmonary edema.
[2016-07-17] MEDS ORDERED: ALBUMIN 25% IV SCH (09:00)
--- NOTE | 2016-07-17 09:02 | ECHO REPORT ---
ORDER DATE: 07/16/2016 INTERPRETING PHYSICIAN: Dr. Disla REQUESTING PHYSICIAN: CLINICAL INDICATIONS: This is an 80-year-old female with shortness of breath, respiratory failure, hypertension. M-MODE MEASUREMENTS: Right ventricle: 2.9 cm. Left ventricle end diastole: 3.4 cm. Left ventricle end systole: 1.6 cm. Posterior wall: 1.8 cm. Interventricular septum: 0.8 cm. Left atrium: Not measured. Aortic root: 3.3 cm. SUMMARY OF 2-DIMENSIONAL IMAGIN. This study is technically very limited. No acute apical windows were obtained, and therefore mitral inflow is not evaluated. 2. Diastolic function is not evaluated in this study. 3. The left ventricular systolic function appears to be hyperdynamic. Ejection fraction is probably in the order of 75% or 80%. No wall motion abnormality noted. 4. The right ventricle appears to be slightly enlarged. 5. Aortic valve has 3 cusps, and they open normally. Color flow mapping is unremarkable. 6. The mitral valve shows mild degree of regurgitation. 7. The tricuspid valve also shows mild degree of regurgitation. 8. Pulmonary pressure is estimated at 35 mmHg. 9. The inferior vena cava was not visualized. 10.A trace of pericardial effusion may be present. 11.A left pleural effusion appears to be present. 12.Pulmonic valve was suboptimally visualized. Doppler pattern of the pulmonary valve was normal. CONCLUSIONS: 1. Hyperdynamic left ventricle. 2. Mild degree of mitral and tricuspid regurgitation. 3. Unremarkable aortic and pulmonic valves. 4. Diastolic function was not evaluated due to poor apical windows. 5. Pulmonary systolic pressure is estimated at 30 to 35 mmHg. Clinical correlation is recommended. This study was technically very limited. cc: MD Padilla Burr MD
[2016-07-17] MEDS: LASIX IV SCH (10:11)
[2016-07-17] MEDS: PROTONIX IV SCH ×2 (10:11→21:30)
[2016-07-17] MEDS: VITAMIN D PO SCH (10:12)
[2016-07-17] MEDS: THERA M PLUS PO SCH (10:12)
[2016-07-17] MEDS: FOLIC ACID PO SCH (10:12)
[2016-07-17] MEDS: DOXYCYCLINE 100 MG in NS 250 ML IV SCH ×2 (11:52→22:35)
[2016-07-17] MEDS: ALBUMIN 25% IV SCH (13:59)
--- NOTE | 2016-07-17 16:16 | PROGRESS NOTE ---
DATE: 07/17/2016 SUBJECTIVE: Today Ms. Peralta referred to be doing a lot better. Continues to have some residual cough especially during eating. OBJECTIVE: Vital signs: Blood pressure 156/72, pulse of 88, respirations 18, temperature 98.6 degrees. General: Ms. Peralta 80-year-old female. She is in bed, not seemingly distressed. She looks very cachectic. HEENT: Mucosa is pink and moist. Anicteric. Acyanotic. Neck: Supple. Chest: Air entry is bilaterally reduced. A few bibasilar crepitations. Cardiovascular: Regular rate and rhythm. Abdomen: Soft, nontender. Extremities: About 2+ pedal edema. There is also some bruises all over the upper bilateral extremities. LABORATORY DATA: WBC is 6.888, hemoglobin is 10.0, platelet count is 238,000. Chemistry. Sodium is 142, potassium is 3.8, chloride is 109, bicarb is 20. A chest x-ray done this morning shows development of bilateral infiltrates and small bilateral pleural effusions, these may relate to pneumonia and/or pulmonary edema. Blood cultures so far have been 48 hours negative. An echocardiogram done yesterday shows left ventricular ejection fraction of 75-80%, no wall abnormality noted. ASSESSMENT: 1. Syncope at home. The patient seems to be doing a whole lot better over here. The history that the daughter sounds like patient was actually aspirated and had an acute respiratory failure and patient syncopized. She has not had that here in the hospital. 2. Right perihilar pneumonia. I think this is likely due to aspiration. Patient is currently on antibiotic Rocephin and doxycycline. We plan to treat this for 10 days. The patient has been on antibiotics for 6 days. 3. History of chronic obstructive pulmonary disease currently not in exacerbation. 4. Anasarca likely due to severe hypoproteinemia. Will continue with albumin infusion and Lasix for 3 days. 5. Anemia of chronic disease with elevated ferritin. 6. General physical deconditioning. 7. Failure to thrive. In general Ms. Peralta is doing a lot better. She got admitted on 07/11/2016 apparently because she had syncopized. According to the daughter she tried to feed her and the patient seems like she might have choked. Over here in the hospital she had a swallow evaluation and mechanical soft diet has been recommended. She has not had any more syncope and has not had any more aspiration episode. She is currently on antibiotics for a total of 10 days. The daughter wants social assistance to help her at home so we will consult social work for assistance and also for home PT. I think by tomorrow if patient continues to show improvement we might be able to discharge her home with home health. The daughter is not very enthused with idea of going in inpatient rehab and I personally do not think patient will benefit for aggressive inpatient rehabilitation. cc: Padilla Arnold MD
[2016-07-17] MEDS: LOVENOX SUBQ SCH (21:18)
[2016-07-17] MEDS ORDERED: HALDOL IM ONE (23:59)
[2016-07-18] MEDS: SOLU-MEDROL IV SCH (06:19)
[2016-07-18 06:56] LABS: AGAP 15; ALBUMIN 2.6 g/dL (3.5-5.0); ALKALINE PHOSPHATASE 52 U/L (32-104); BUN 35 mg/dL (8-22); CHLORIDE 106 mmol/L (98-107); COSMO 290; GOT 17 U/L (10-30); GPT 17 U/L (10-36); POTASSIUM 3.8 mmol/L (3.5-5.1); SODIUM 142 mmol/L (136-145); TCO2 21 mmol/L (25-35); TOTAL PROTEIN 4.4 g/dL (6.3-8.3)
[2016-07-18] MEDS: DUONEB (A & A) INH PRN (07:44)
[2016-07-18] MEDS: THERA M PLUS PO SCH (08:58)
[2016-07-18] MEDS: FOLIC ACID PO SCH (08:58)
[2016-07-18] MEDS: VITAMIN D PO SCH (08:58)
[2016-07-18] MEDS: LASIX IV SCH (08:58)
[2016-07-18] MEDS: PROTONIX IV SCH ×2 (08:59→20:02)
--- NOTE | 2016-07-18 11:01 | PROGRESS NOTE ---
DATE: 07/18/2016 SUBJECTIVE: The patient is lying in the bed. She is oriented to person and family. She is receiving oxygen 40% via face mask. She denies pain. The daughter did state that she rested better last night. She denies CP, Shortness of breath, chills, fever. OBJECTIVE: Vital Signs: Blood pressure is 132/79 with a heart rate of 83, respirations are 16, temperature is 97.3 degrees oral with oxygen saturations of 96-100 on 40% Ventimask. Cardiovascular: Regular rate and rhythm. S1 and S2 are appreciated. Pulmonary: Breath sounds are diminished throughout with equal rise and fall of chest. No increased work of breathing noted. Gastrointestinal: Abdomen is soft, nondistended, with bowel sounds in all 4 quadrants. Extremities: No clubbing, cyanosis, or edema. She is cachectic. Pulses palpable x4. Neurologic: She is awake. She does say her daughter's name and nods her head no when asked if she is in pain. DIAGNOSTICS: Sodium is 142, potassium 3.8, BUN 35, creatinine 0.8, with a glucose of 71. ASSESSMENT: 1. Syncope at home, likely due to aspiration. 2. Right hilar pneumonia, likely due to aspiration pneumonia. 3. Hypercarbic respiratory distress on presentation. 4. History of chronic obstructive pulmonary disease. 5. General physical deconditioning. 6. Protein calorie malnutrition. PLAN: I did discuss with the daughter the patient's poor prognosis. We discussed her goals regarding her mother. She stated that she felt she would like to take her mother home, that she could assist her to get up to a bedside commode and a chair and back to bed. She was concerned about her comfort. We did discuss hospice. The daughter is interested in talking with them so they will come by today. We will continue with her current medications and treatments. Dictated by AUSTIN Ramirez for Anjel Caldera MD cc: AUSTIN Ramirez MD pt examined, agree with above, plan for home hospice [facility]
[2016-07-18] MEDS: DOXYCYCLINE 100 MG in NS 250 ML IV SCH ×2 (11:16→22:09)
[2016-07-18] MEDS: ALBUMIN 25% IV SCH (13:05)
[2016-07-18] MEDS: LOVENOX SUBQ SCH (20:02)
[2016-07-19] MEDS: ROCEPHIN 2 GM/NS 2 GM/50 ML IVPB IV SCH (00:07)
[2016-07-19] MEDS: TYLENOL PO PRN ×2 (01:03→09:15)
[2016-07-19] MEDS: SOLU-MEDROL IV SCH (05:20)
[2016-07-19 07:30] VITALS: BP 135/73
[2016-07-19] MEDS: PROTONIX IV SCH (08:02)
--- NOTE | 2016-07-19 08:10 | DISCHARGE SUMMARY ---
ADMISSION DATE: 07/11/2016 DISCHARGE DATE: 07/19/2016 DIAGNOSES: 1. Syncopal episode. Unresponsive. 2. Right perihilar pneumonia. 3. History of chronic obstructive pulmonary disease. 4. Anasarca likely due to severe hypoproteinemia. 5. Anemia of chronic disease with elevated ferritin. 6. Failure to thrive. DIAGNOSTICS: 1. 07/11/2016 chest x-ray: Hyperexpanded lungs. Heart is not enlarged. Pulmonary vessels are small. No pneumonia and no pleural effusion identified. 2. 07/13/2016 chest x-ray: Increased opacification in the right perihilar region. Right perihilar infiltrate is possible. Lungs are clear. Otherwise no definite pleural fluid collection. Cardiac silhouette is unremarkable. 3. 07/16/2016 echocardiogram: Hyperdynamic left ventricle, mild degree of mitral and tricuspid regurgitation. Unremarkable aortic and pulmonic valves. Diastolic function was not evaluated due to poor apical windows. Pulmonary systolic pressure is estimated at 30- 35 mmHg. Ejection fraction order is 75-80% with no wall motion abnormality noted. 4. 07/17/2016 chest x-ray: The development of bilateral infiltrates and small bilateral pleural effusions. 5. Microbiology: Cultures x2 revealed no growth after 5 days. 6. Urine culture revealed no growth. HOSPITAL COURSE: Ms. Peralta presented to the emergency room after having a syncopal episode after which she was unresponsive. CPR was performed per her daughter. . On arrival to the emergency room, she was breathing 4-5 times/minute, She was placed on BiPAP. then weaned to 2l nasal cannula. She was hypothermic, after being warmed, she has maintained temps She was found to have pneumonia for which she received. Rocephin and doxycycline x 8 days. She was hypothermic, after being warmed, she has maintained temps of 97 to 99. She was given albumin along with Lasix for her hypoproteinemia. After Swallow evaluation, she was placed on a mechanical soft diet. Due to her poor prognosis, the family has opted for the patient to return to her home under the care of [facility]. PHYSICAL EXAMINATION: Vital Signs: Blood pressure is 132/77 with a heart rate of 98, respirations are 18, temperature is 99 degrees axillary with O2 saturations of 97-100% on 2 L nasal cannula. Cardiovascular: Regular rate and rhythm. S1 and S2 are appreciated. Pulmonary: She has decreased air entry bilateral with no increased work of breathing noted. Breath sounds are clear. Gastrointestinal: Abdomen is soft, nontender, nondistended with bowel sounds in all 4 quadrants. Extremities: No clubbing or cyanosis. She does have pedal edema with some bruises on her bilateral upper extremities. DISCHARGE DIET: As tolerated. Mechanical soft with Ensure clear 3 times a day as recommended following her speech and swallow evaluation. DISCHARGE MEDICATIONS: 1. Aspirin 81 mg daily. 2. Prinivil 10 mg daily. 3. BuSpar 15 mg b.i.d. 4. Folic Acid 1 mg daily 5. Aricept 10mg bid 6. Lexapro 20 mg daily 7. MVI 1 daily 8. Doxycycline 100mg bid x 3 days 9. Omnicef 300mg bid x 3 days .She is being discharged home under the care of [facility] with her daughter present. Dictated by AUSTIN Ramirez for Sam Catalan MD cc: AUSTIN Ramirez MD [facility]
[2016-07-19] MEDS: THERA M PLUS PO SCH (09:15)
[2016-07-19] MEDS: FOLIC ACID PO SCH (09:15)
[2016-07-19] MEDS: VITAMIN D PO SCH (09:15)
== END 2016-07-19 10:10 | disposition hospice, home (50) ==
LOC: P.ED 19:25 → SUATTDRO 20:40 → P.ICU 20:40 → P.MEDSURG 07-15 15:41
PROVIDERS: ADMIT Family Medicine; ATTEND Family Medicine